=== PATIENT | female | born 1965 | race Caucasian/White ===

== ENCOUNTER 2016-10-26 08:02 | Emergency (ER) | payer OTHER ==
[~2016-10-26] VITALS: Ht 160 cm; Wt 68.0 kg
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
[2016-10-26] MEDS ORDERED: ARIP2TAB9 PO (08:18)
[2016-10-26] MEDS ORDERED: SUMA50TA PO (08:18)
[2016-10-26] MEDS ORDERED: FLUO10CA26 PO (08:18)
[2016-10-26] MEDS ORDERED: HYDROCODONE/APAP 5/325MG 1 EACH TABLET ONE (10:13)
--- NOTE | 2016-10-26 10:15 | NUR ---
Patient discharged to home in stable condition. Written and verbal after care instructions given. Patient verbalizes understanding of instruction. IV removed. Catheter intact and site benign. Pressure and 4x4 applied to site. No bleeding noted. NAD NOTED UPON DISCHARGE
[2016-10-26 10:20] VITALS: BP 125/75
[2016-10-26] MEDS ORDERED: HYDROCODONE/APAP 5/325MG 1 EACH TABLET PO ONE (10:30)
== END 2016-10-26 10:20 | disposition home or self-care (01) ==
LOC: ER 08:04
DX: S16.1XXA Strain of muscle, fascia and tendon at neck level, initial encounter (principal); S60.042A Contusion of left ring finger without damage to nail, initial encounter; Z98.1 Arthrodesis status; V43.52XA Car driver injured in collision with other type car in traffic accident, initial encounter; Y93.89 Activity, other specified; Y92.410 Unspecified street and highway as the place of occurrence of the external cause; Y99.9 Unspecified external cause status
CPT/HCPCS: 71010-TC; 72040-TC; 73140-TC; A4606; Z7610